=== PATIENT | male | born 1960 | race Caucasian/White ===

== ENCOUNTER → 2024-10-04 14:30 | Outpatient (REF) | payer OTHER, SELFPAY | LOC: HWRAD 14:30 | PROVIDERS: ATTENDING PHYSICIAN Otolaryngology; FAMILY PHYSICIAN Student in an Organized Health Care Education/Training Program | DX: J34.89 Other specified disorders of nose and nasal sinuses (principal); J33.0 Polyp of nasal cavity | CPT/HCPCS: 70486 ==